=== PATIENT | female | born 1950 | race Caucasian/White ===

== ENCOUNTER 2016-08-10 20:17 | Observation (INO) ==
--- NOTE | 2016-08-10 20:46 | Emergency Department Note ---
Disposition Clinical Impression: Chest pain Qualifiers: Chest pain type: unspecified Qualified Code(s): R07.9 - Chest pain, unspecified Disposition: Admitted As Inpatient Condition: Good Chest Pain HPI - General Chief Complaint: ED Chest Pain Stated Complaint: chest pain Time Seen by Provider: 08/10/16 20:24 Source: patient Limitations: no limitations Vital Signs Reviewed: Yes Nursing Notes Reviewed: Yes - History of Present Illness HPI Narrative: Patient here for evaluation of chest pain that started while she was watering meredith. Patient had dull substernal burning and pressure that began to relieve after approximately 1 minute and resolved after 5 minutes. She has had 2 more of these episodes since arriving to the hospital. Patient states that she was admitted for cardiac workup approximately one year ago with her stress test being negative. She said that she was diagnosed with hiatal hernia. She has not had any other symptoms or issues with this until today. Symptoms are not associated with exertion, deep breathing, food. Not relieved with belching. Severity scale (1-10): 0 - Related Data Previous Rx's Medication Instructions Recorded Lisinopril [Zestril] 10 mg PO DAILY #30 tablet 06/21/15 Omeprazole [PriLOSEC] 20 mg PO DAILY #30 capsule. 06/21/15 Allergies Allergy/AdvReac Type Severity Reaction Status Date / Time No Known Allergies Allergy Verified 06/20/15 18:24 Review of Systems: CONSTITUTIONAL: No weight loss, fever, chills, weakness or fatigue. HEENT: Eyes: No visual changes. Ears, Nose, Throat: No hearing loss, difficulty talking or unable to swallow. SKIN: No rash or itching. CARDIOVASCULAR: chest pain, chest pressure and chest discomfort. No palpitations or edema. RESPIRATORY: No shortness of breath, cough or sputum. GASTROINTESTINAL: No anorexia, nausea, vomiting or diarrhea. No abdominal pain or blood. GENITOURINARY: No burning on urination or hematuria. NEUROLOGICAL: No headache, dizziness, syncope, paralysis, ataxia, numbness or tingling in the extremities. No change in bowel or bladder control. MUSCULOSKELETAL: No muscle pain, back pain, joint pain or stiffness. Chest Pain PMH - Past Medical History Medical history: Reports: hypertension Surgical history: Reports: no surgical history Psychiatric history: Reports: no psych history HEALTH SPA MANAGER history: Reports: no HEALTH SPA MANAGER history - Social History Smoking Status: Never smoker Alcohol use: Reports: none Drug use: Reports: none Physical Exam General appearance: NAD, conversant Eyes: anicteric sclerae, moist conjunctivae; PERRL HENT: Atraumatic; oropharynx clear with moist mucous membranes and no mucosal ulcerations Neck: Normal inspection; Trachea midline; FROM, supple Lungs: CTA, with normal respiratory effort and no intercostal retractions CV: RRR, no MRGs Abdomen: Soft, non-tender; no rebound or gaurding Extremities: No peripheral edema or extremity lymphadenopathy Skin: Normal temperature; no rash, ulcers or lesions Psych: Appropriate mood and affect Neuro: alert and oriented to person, place and time - General Limitations: no limitations General appearance: alert, in no apparent distress Course - Reevaluation(s) Reevaluation #1: Discussed test results with the patient. Offered her a repeat troponin 2 hours. The patient states she would rather stay in the hospital for a more thorough cardiac evaluation. Hospitalist will be paged for admission. - Consultations Consultation #1: Discussed with Dr. Mosquera. Pt accepted for admission. Vital Signs Temperature 98.4 F 08/10/16 20:18 Pulse Rate 76 08/10/16 20:18 Respiratory Rate 16 08/10/16 20:18 Blood Pressure 119/80 08/10/16 20:18 O2 Sat by Pulse Oximetry 98 08/10/16 20:18 Temperature 98.4 F 08/10/16 20:18 Pulse Rate 67 08/10/16 21:41 Respiratory Rate 16 08/10/16 21:41 Blood Pressure 119/68 08/10/16 21:41 O2 Sat by Pulse Oximetry 98 08/10/16 21:41 Oxygen Delivery Oxygen Delivery Room Air Chest Pain - Medical Records Medical records reviewed: Yes I reviewed the patient's medical records. - Lab Data Lab results reviewed: Yes I reviewed the patient's lab results. Result diagrams: 08/10/16 20:53 08/10/16 20:53 Lab Results 08/10/16 08/10/16 08/10/16 Range/Units 20:53 20:53 20:53 WBC 8.1 (4.3-11.1) K/mcL RBC 4.65 (3.82-4.97) M/mcL Hgb 13.3 (11.5-15.4) g/dL Hct 41.2 (35.3-44.9) % MCV 88.6 (83.0-100.0) fL MCH 28.6 (28.0-33.3) pg MCHC 32.3 (31.6-35.5) g/dL RDW 13.6 (11.5-14.5) % Plt Count 316 (140-400) K/mcL MPV 10.5 (9.4-12.4) fL Immature Gran % 0.5 (0-4) % Seg Neutrophils % 72.1 % Lymphocytes % 18.7 % Monocytes % 7.2 % Eosinophils % 0.6 % Basophils % 0.9 % Neutrophils # 5.9 (1.6-8.9) K/mcL Lymphocytes # 1.5 (0.6-4.6) K/mcL Monocytes # 0.6 (0.0-1.3) K/mcL Eosinophils # 0.1 (0.0-0.6) K/mcL Basophils # 0.1 (0.0-0.2) K/mcL Sodium 140 (136-145) mEq/L Potassium 3.5 (3.5-4.5) mEq/L Chloride 105 (98-109) mEq/L Carbon Dioxide 25 (19-29) mEq/L BUN 27 H (7-20) mg/dL Creatinine 1.04 (0.57-1.11) mg/dL Est GFR ( Amer) > 60 (> 60) Est GFR (Non-Af Amer) 54 L (> 60) BUN/Creatinine Ratio 26 (6-26) Glucose 105 H (70-99) mg/dL Calculated Osmolality 295 (280-300) Calcium 10.2 (8.6-10.8) mg/dL Troponin I 0.00 (0-0.03) ng/mL - Radiology Data Radiology results reviewed: Yes I reviewed the patient's radiology results. - EKG Data EKG attestation: Yes I reviewed and interpreted this EKG. EKG results narrative: EKG shows sinus rhythm with ventricular rate of 72 bpm. MO interval 147. QRS 94. QTC 395. Patient has no significant ST elevations. His concern for some mild ST depressions in the anterior lateral leads however these are improved from previous EKG of 06/20/15. Heart Score - Score History: Slightly Suspicious EKG: Non Specific repolarisation Disturbance Age: 45-65 Risk Factors: 1-2 risk factors Troponin: Less than normal limit HEART Score Total: 3 Attestation Statement - Attestation Attestation: I, Michael Santana MD, personally evaluated this patient and discussed their management with the resident physician. I reviewed the resident's note and agree with the documented findings, medical decision making, and plan of care. 65-year-old female presents to the emergency department with a complaint of an episode of mid lower substernal chest pain earlier this afternoon while she was watering meredith. The pain resolved after about 5 minutes but then she has had 2 more episodes of similar pain since then. No nausea or vomiting or diaphoresis with the episodes. No palpitations. No shortness of breath. On examination patient is a well-developed well-nourished well-appearing female in no acute distress. She is alert and oriented 3. There is no cyanosis or diaphoresis. Chest is nontender to palpation. Breath sounds are clear and equal bilaterally. Heart regular rate and rhythm. Abdomen soft and nontender with normal bowel sounds. EKG shows some minimal anterior ST segment depression but otherwise no acute ischemic changes. Chest x-ray shows no acute abnormality. Labs reviewed. The hospitalist, Dr. Mosquera, was consulted and accepted admission of the patient.
[2016-08-10 21:02] LABS: Basophils # 0.1 K/mcL (0.0-0.2); Basophils % 0.9 %; Eosinophils # 0.1 K/mcL (0.0-0.6); Eosinophils % 0.6 %; Hematocrit 41.2 % (35.3-44.9); Hemoglobin 13.3 g/dL (11.5-15.4); Immature Granulocytes % 0.5 % (0-4); Lymphocytes # 1.5 K/mcL (0.6-4.6); Lymphocytes % 18.7 %; Mean Corpuscular HGB Conc 32.3 g/dL (31.6-35.5); Mean Corpuscular Hemoglobin 28.6 pg (28.0-33.3); Mean Corpuscular Volume 88.6 fL (83.0-100.0); Mean Platelet Volume 10.5 fL (9.4-12.4); Monocytes # 0.6 K/mcL (0.0-1.3); Monocytes % 7.2 %; Neutrophils # 5.9 K/mcL (1.6-8.9); Platelet Count 316 K/mcL (140-400); Red Blood Count 4.65 M/mcL (3.82-4.97); Red Cell Distribution Width 13.6 % (11.5-14.5); Segmented Neutrophils % 72.1 %
[2016-08-10 21:16] LABS: BUN/Creatinine Ratio 26 (6-26); Blood Urea Nitrogen 27 mg/dL (7-20); Calcium 10.2 mg/dL (8.6-10.8); Carbon Dioxide 25 mEq/L (19-29); Chloride 105 mEq/L (98-109); Glucose 105 mg/dL (70-99); Osmolality,Calculated 295 (280-300); Potassium 3.5 mEq/L (3.5-4.5); Sodium 140 mEq/L (136-145); eGFR For African Americans > 60 (> 60); eGFR For Non-African Americans 54 (> 60)
[2016-08-10] MEDS ORDERED: Aspirin 81 MG TAB.CHEW PO ONE (21:48)
[2016-08-10] MEDS ORDERED: Naloxone 0.4 MG/ML INJ IVP PRN (23:37)
[2016-08-10] MEDS ORDERED: Ondansetron 4 MG/2 ML VIAL IVP PRN (23:37)
[2016-08-10] MEDS ORDERED: Acetaminophen 325 MG TABLET PO PRN (23:37)
--- NOTE | 2016-08-11 00:06 | Internal Med History&Physical ---
Date of Encounter: 08/11/16 Time of Encounter: 23:45 Assessment and Plan (1) Palpitations Current visit: Yes Status: Acute Place under observation on telemetry Cycle cardiac enzymes Check ECHO No indication for repeat stress test If nothing shows on telemetry over the next 12 hours, she may need outpatient Holter monitoring or Event recorder &/or cardiology referral. (2) Hypertension Current visit: Yes Status: Chronic Controlled BP. Home meds Qualifiers: Hypertension type: essential hypertension Qualified Code(s): I10 - Essential (primary) hypertension Internal Medicine - H&P: HPI Chief complaint: Palpitations Admitted From: Emergency Dept Plans for Post Hospital Care: Home History of present illness: Ms. Pastor is a 65 year old female presented to ER due to palpitations that started today evening when she was watering her plants. They persisted for a few minutes and resolved. However, they occurred again and have been happening intermittently. Hence, she came to the ER. She denies any chest pain. She denies feeling SOB, lightheadedness, vomiting, sweating, abd. pain. She does report some nausea with the episode. She had similar symptoms 1 year ago for which she underwent a stress test which was normal. She never had an ECHO. She never had Holter monitoring or Event recorder. She has never seen cardiology. No aggravating or relieving factors for her palpitations. Past Med Surg Social Fam HX - Past Medical History Attestation: Yes The following information was validated with the patient. Source: patient Medical history: hypertension Psychiatric history: no psych history - Past Surgical History Surgical History: no surgical history - Social History Smoking Status: Never smoker Smokeless Tobacco Status: No Alcohol use: none Drug use: none Occupational status: retired Current living situation: Home Activity Level: Independent ambulation Recent Out of Country Travel Within the Last 8 Weeks: No Exposure or Possible Exposure to Illness During Travel: No - Family History Father Hx Family Cardiac Disorders: Yes (MYOCARDIAL INFARCTION.) Internal Medicine - H&P: Meds Lisinopril [Zestril] 10 mg PO DAILY #30 tablet 06/21/15 [Rx] Omeprazole [PriLOSEC] 20 mg PO DAILY #30 capsule. 06/21/15 [Rx] Allergies No Known Allergies Allergy (Verified 06/20/15 18:24) All Systems PM: A 10-system review of systems was performed and is negative for pertinent findings except as documented above in the HPI. Review of systems: 10 systems reviewed and negative except as mentioned in the HPI - Constitutional Vitals: Temp Pulse Resp BP Pulse Ox 98.4 F 70 16 105/62 98 08/10/16 20:18 08/10/16 22:18 08/10/16 23:01 08/10/16 23:01 08/10/16 22:18 - Head Head exam: Present: atraumatic, normocephalic - Eye Eye exam: Present: PERRL, conjuntiva pink, sclera anicteric Pupils: Present: PERRL - Neck Neck exam general surgery: Present: supple, trachea midline. Absent: lymphadenopathy - Respiratory Respiratory exam: Present: CTAB. Absent: accessory muscle use, rales, rhonchi, wheezes - Cardiovascular Cardiovascular exam: Present: RRR, +S1, +S2. Absent: diastolic murmur, gallop, rubs, systolic murmur - GI/Abdominal GI/Abdominal exam: Present: normal bowel sounds, soft, no peritoneal signs. Absent: distended, tenderness - Extremities Exam Extremities exam: Present: warm, radial pulses palpable and symetrical. Absent : calf tenderness, cyanotic, pedal edema - Neurological Exam Neurological exam: Present: oriented X3, no focal deficits. Absent: facial droop, speech deficit - Psychiatric Psychiatric exam: Present: normal affect, normal mood - Skin Skin exam: Present: dry, intact Internal Med - H&P Results - Labs CBC & Chem 7: 08/10/16 20:53 08/10/16 20:53 - EKG Data -: EKG Interpreted by Myself EKG shows normal: sinus rhythm, ST-T waves (T-inversion in lead III) Rate: normal - EKG Data Prior EKG available for review: yes When compared to previous EKG: there is no significant change - Diagnostic Studies Chest x-ray Status: image reviewed by me (No acute abnormalities detected)
[2016-08-11] MEDS ORDERED: *HR* Heparin 5,000 UNIT/ML VIAL SQ SCH (06:00)
[2016-08-11 10:55] VITALS: BP 116/79
--- NOTE | 2016-08-11 13:04 | Discharge Summary ---
Date of Encounter: 08/11/16 Time of Encounter: 11:20 - Discharge Diagnosis (1) Palpitations Priority: Primary Status: Acute Comments: Patient reports palpitations last night while watering her meredith, she says it she has been having these palpitations 45 times a day for the last month. She says they generally last just seconds. I asked her if there was a concerning symptom that prompted her to come to the emergency room last night instead of in the past, she said she gets scared easily. She denies chest pain at all. S1 and S2 were heard, rate and rhythm were regular. I heard no murmurs, clicks , gallops. Echocardiogram today showed LVEF 65%, normal systolic function, mild diastolic dysfunction normal RV size and function, mild to moderate valvular dysfunction, an aneurysmal intra-atrial septum, and no PFO with saline contrast. I spoke with cardiology REJECTOR, this is an incidental finding and does not require surgical intervention at this time. I will send patient home with an order for Holter monitor for evaluation of palpitations. (2) Hypertension Priority: Secondary Status: Chronic Comments: Well-controlled in inpatient setting. Continue home medications Qualifiers: Hypertension type: essential hypertension Qualified Code(s): I10 - Essential (primary) hypertension - Discharge Medications Home Medications: Omeprazole [PriLOSEC] 20 mg PO DAILY #30 capsule. 06/21/15 [Rx] Acetaminophen [Tylenol] 1,000 mg PO Q6HR PRN 08/11/16 [History] D-Methorphan/Acetamin/Doxylamn [Vicks Nyquil Liquicaps] 1 cap PO HS PRN [History] Lisinopril/Hydrochlorothiazide [Zestoretic 20-25 mg Tablet] 1 tab PO DAILY 08/11 [History] Metoprolol [Lopressor] 25 mg PO DAILY 08/11/16 [History] Allergies/Adverse Reactions: Allergies No Known Allergies Allergy (Verified 06/20/15 18:24) Procedures/tests Complete & Pending: Procedures Performed prior 72 hours Category Date Time Status EV echocardiogram Routine Y 08/11/16 00:03 Completed Date of admission: 08/10/16 22:07 Primary care physician: Keri Gan CNP Discharging clinician: Winsome Sifuentes Anticipated date of discharge: 08/11/16 - Patient Status Disposition: Home, Self-Care Functional capacity at discharge: independent ambulation Overall status at discharge: patient is back to baseline - Ambulatory Orders Ambulatory Orders: ECG holter monitor [ECG] Time Frame: 2 Days, Facility: [facility], Location: Cardiopulmonary Svc - Discharge Instructions Follow Up With: Keri Gan CNP [Primary Care Provider] - Additional Instructions: Follow up with your PCP in the next week or so for a follow up visit. REturn to the ER as needed for any other problems or concerns or if you have chest pain or increasing palpitations. Holter monitor for 48 hours and follow up with your PCP for results. - Diet and Activity Activity: resume usual activities as tolerated Diet: advance to your usual diet Hospital course: Ms. Pastor is a 65 year old female with prior history of HTN and hiatal hernia. She reports a month long history of daily palpitations that occur 4-5 x daily. She denies SOB, N/V or diaphoresis. She denies dizziness or lightheadedness with palpitations. She has never had chest pain. I asked her what changed to bring her in for evaluation after 1 month and she said, "I get scared". She says each episode only lasts a few seconds and there is no relation to rest or exertion. Labs have been WNL, trops are negative x3. She had a negative stress about 1 year ago, and an echocardiogram was done today. Showed LVEF of 65%, normal systolic function, mild diastolic dysfunction mild to moderate valvular dysfunction and an aneurysmal interatrial septum that requires neurosurgical intervention at this time. Patient is being sent home with an order for Holter monitor. Patient's lungs are clear, S1-S2 are heard without any gallops, clicks, rubs, or murmurs. Rate and rhythm are regular. She has +2 peripheral pulses both upper and lower extremities. Abdomen is soft and nontender to palpation. There is no peripheral edema. Patient is stable and appropriate for discharge. - Time Spent with Patient Total time spent providing and/or coordinating discharge services: Less than 30 minutes - Constitutional Vitals: Temp Pulse Resp BP Pulse Ox 97.9 F 76 12 116/79 97 08/11/16 10:52 08/11/16 10:52 08/11/16 10:52 08/11/16 10:52 08/11/16 10:52 General appearance: Present: A&O X 3, pleasant, no acute distress, answers questions appropriately - Head Head exam: Present: normal inspection - Eye Eye exam: Present: normal appearance, conjuntiva pink - Respiratory Respiratory exam: Present: CTAB. Absent: decreased breath sounds, rales, respiratory distress, stridor, wheezes - Cardiovascular Cardiovascular exam: Present: RRR, +S1, +S2. Absent: clicks, diastolic murmur, gallop, systolic murmur - Expanded Cardiovascular Exam Peripheral pulses: 2+: Dorsalis Pedis (L) PM, Dorsalis Pedis (R) PM - GI/Abdominal GI/Abdominal exam: Present: normal bowel sounds, soft. Absent: distended, guarding, hepatomegaly, tenderness - Extremities Exam Extremities exam: Present: warm, radial pulses palpable and symetrical. Absent : pedal edema, tenderness - Neurological Exam Neurological exam: Present: alert, normal gait, oriented X3, no focal deficits, strengths equal and symetr throughout. Absent: facial droop, speech deficit
--- NOTE | 2016-08-12 17:58 | Electrocardiograph Report ---
[place] [id number] Test Date: 2016-08-10 Pat Name: Brigid Pastor Department: 104 Room: 3B Gender: F Chief Fundraising Officer: JACOB : 1950 Requested By: Sukhi [place] Order Number: [id number] Reading MD: Kalpana Sheehan Measurements Intervals [place] Rate: 72 P: 40 AK: 147 QRS: -7 QRSD: 94 T: 0 QT: 370 QTc: 395 Interpretive Statements SINUS RHYTHM MINIMAL ST DEPRESSION Electronically Signed On 08-12-2016 17:56:26 EDT by Kalpana Sheehan
== END 2016-08-11 14:30 | disposition home or self-care (01) ==
LOC: EMEROO 20:17 → 3ANU 20:17 → 3BNU 22:39
PROVIDERS: ADMIT Internal Medicine Sleep Medicine; ATTEND Registered Nurse